=== PATIENT | female | born 1960 | race Asian ===

== ENCOUNTER 2017-03-23 23:45 | Emergency (ER) | payer OTHER ==
[2017-03-24] MEDS ORDERED: Sodium Chloride 0.9% 1,000 ML IV ONE (00:07)
[2017-03-24 00:33] LABS: % BASOPHILS 0.2 % (0.0-2.0); % EOSINOPHILS 0.8 % (0.0-5.0); % LYMPHOCYTES 25.3 % (20.0-50.0); % MONOCYTES 6.7 % (2.0-10.0); EOSINOPHILE ABSOLUTE 0.1 Th/cmm (0.1-0.4); HEMATOCRIT 40.7 % (41.0-60); HEMOGLOBIN 14.1 gm/dL (12-16); LYMPHOCYTE ABSOLUTE 1.9 Th/cmm (1.5-3.0); MEAN CELL VOLUME 89.3 fl (81-100); MEAN CORPUSCULAR HEMOGLOBIN 30.8 pg (27.0-31.0); MEAN CORPUSCULAR HGB CONC 34.5 pg (28.0-36.0); MEAN PLATELET VOLUME 10.4 fl; MONOCYTE ABSOLUTE 0.5 Th/cmm (0.3-1.0); NEUTROPHILE ABSOLUTE 5.2 Th/cmm (1.8-8.0); PLATELET COUNT 179 Th/cmm (150-400); RED BLOOD COUNT 4.56 Mil/cmm (3.80-5.10); RED CELL DISTRIBUTION WIDTH 12.3 % (11.5-20.0); WHITE BLOOD COUNT 7.7 Th/cmm (4.8-10.8)
[2017-03-24 00:38] LABS: ANION GAP 11.1 (7.0-16.0); BUN - UREA NITROGEN 19 mg/dL (7-25); CALCIUM SERUM 9.7 mg/dL (8.6-10.3); CARBON DIOXIDE 24.4 mEq/L (21.0-31.0); CHLORIDE 101 mEq/L (98-107); CREATININE - SERUM 0.8 mg/dL (0.6-1.2); GFR AFRICAN-AMERICAN > 60.0 ml/min (>90); GFR NON AFRICAN-AMERICAN > 60.0 ml/min; GLUCOSE 117 mg/dL (70-105); POTASSIUM SERUM 3.5 mEq/L (3.5-5.1)
[2017-03-24 00:42] LABS: SODIUM SERUM 133 mEq/L (136-145)
--- NOTE | 2017-03-24 00:50 | ED Physician Chart ---
ED Chief Complaint/HPI - Patient Information Date Seen:: 03/24/17 Time Seen:: 00:05 Chief Complaint:: Itchy rashes and hives History of Present Illness:: 56 yo female developed itchy rashes and hives for 1 day after eating some snacks the night prior. Rashes on neck, scalp, back, b/l axilla, b/l antecubital areas, b/l hands, and bilateral inner upper thigh. She also had swelling of upper eye lids and upper lip. Patient denied any difficulty breathing. Denied swelling of tongue. Allergies:: Allergies Allergy/AdvReac Type Severity Reaction Status Date / Time No Known Allergies Allergy Verified 03/24/17 00:00 Vitals:: Vital Signs - 8 hr 03/24/17 00:02 Temp 97.9 F HR 71 RR 16 BP 159/91 O2 Sat % 95 ED Review of Systems - Review of Systems General/Constitutional: No fever, No chills Skin: Rash Head: No headache ED Past Medical History - Past Medical History Past Medical History: No significant medical hx Social History: Non Smoker, No Alcohol, No Drug Use Surgical History: None Family Medical History - Family Member Mother Ethnicity: Non- ED Labs/Radiology/EKG Results - Lab Results Results: Laboratory Tests 03/24/17 03/24/17 00:11 00:11 WBC 7.7 RBC 4.56 Hgb 14.1 Hct 40.7 L MCV 89.3 MCH 30.8 MCHC Differential 34.5 RDW 12.3 Plt Count 179 MPV 10.4 Neutrophils % 67.0 Lymphocytes % 25.3 Monocytes % 6.7 Eosinophils % 0.8 Basophils % 0.2 Sodium 133 L Potassium 3.5 Chloride 101 Carbon Dioxide 24.4 Anion Gap 11.1 BUN 19 Creatinine 0.8 Est GFR ( Amer) > 60.0 Est GFR (Non-Af Amer) > 60.0 BUN/Creatinine Ratio 23.8 Glucose 117 H Calcium 9.7 ED Assessment - Assessment Assessment/Comments:: Medrol dose pack #1 ED Septic Shock - <6hrs of presentation: Vital Signs: Vital Signs - 8 hr 03/24/17 00:02 Temp 97.9 F HR 71 RR 16 BP 159/91 O2 Sat % 95 ED Discharge Plan - Patient Disposition Prescriptions: Diphenhydramine HCL [Benadryl] 25 mg PO Q6H PRN #20 cap PRN Reason: Itching Instructions: Hives, [id number] Additional Instructions: please follow up with primary doctor Forms: Work Release Form
== END 2017-03-24 01:55 | disposition home or self-care (01) ==
LOC: ER 23:45
DX: L50.9 Urticaria, unspecified (principal)
CPT/HCPCS: 99284; 96374; 96375; 36415; 85025; 80048; J2930; J1200; J7030; Z7502